=== PATIENT | female | born 1970 | race Caucasian/White ===

== ENCOUNTER 2020-05-05 10:52 | Emergency (ER) | payer BC ==
[2020-05-05] MEDS ORDERED: SODIUM CHLORIDE 0.9% 1,000 ML IV STA (11:19)
[2020-05-05] MEDS ORDERED: METOCLOPRAMIDE 5 MG/ML 2 ML VIAL IVP STA (11:19)
[2020-05-05] MEDS ORDERED: BENZONATATE 100 MG CAP PO STA (11:19)
[2020-05-05] MEDS ORDERED: diphenhydrAMINE 50 MG/ML 1 ML VIAL IVP STA (11:19)
[2020-05-05] MEDS ORDERED: KETOROLAC 15 MG/ML 1 ML VIAL IVP STA (11:27)
--- NOTE | 2020-05-05 11:28 | ED ---
URI HPI - General Chief Complaint: Upper Respiratory Infection Stated Complaint: COVID+, NAUSEA Time Seen by Provider: 05/05/20 11:06 Source: patient, RN notes reviewed Mode of arrival: ambulatory Limitations: no limitations - History of Present Illness Initial Comments: This a 49-year-old female presents emergency Department chief complaint is severe nausea, vomiting, cough. Patient states she started symptoms over one week ago. Patient tested positive for Covid. Patient states that she did video [employer] health. Patient states that she was given Zofran states that has not helped. Patient states she just feels very fatigued, weak. Denies any chest pain, shortness breath. She's had no sick contacts. Patient offers no complaints. Denies any current medications no ALLERGIES - Related Data Home Medications Medication Instructions Recorded Confirmed Acetaminophen Tab [Tylenol] 1,000 mg PO Q4H PRN 05/05/20 05/05/20 Ondansetron [Zofran] 8 mg PO Q12HR PRN 05/05/20 05/05/20 guaiFENesin [Mucinex] 1,200 mg PO Q12H PRN 05/05/20 05/05/20 Previous Rx's Medication Instructions Recorded Metoclopramide [Reglan] 10 mg PO TID PRN #15 tab 05/05/20 Allergies Allergy/AdvReac Type Severity Reaction Status Date / Time No Known Allergies Allergy Verified 05/05/20 13:06 Review of Systems ROS Statement: Those systems with pertinent positive or pertinent negative responses have been documented in the HPI. ROS Other: All systems not noted in ROS Statement are negative. Past Medical History Past Medical History: No Reported History History of Any Multi-Drug Resistant Organisms: None Reported Past Surgical History: No Surgical Hx Reported Past Psychological History: No Psychological Hx Reported Smoking Status: Never smoker Past Alcohol Use History: None Reported Past Drug Use History: None Reported General Exam Limitations: no limitations General appearance: alert, in no apparent distress Head exam: Present: atraumatic, normocephalic, normal inspection Eye exam: Present: normal appearance, PERRL, EOMI. Absent: scleral icterus, conjunctival injection, periorbital swelling ENT exam: Present: normal exam, normal oropharynx, mucous membranes moist Neck exam: Present: normal inspection, full ROM. Absent: tenderness, meningismus, lymphadenopathy Respiratory exam: Present: normal lung sounds bilaterally. Absent: respiratory distress, wheezes, rales, rhonchi, stridor Cardiovascular Exam: Present: regular rate, normal rhythm, normal heart sounds. Absent: systolic murmur, diastolic murmur, rubs, gallop, clicks GI/Abdominal exam: Present: soft, normal bowel sounds. Absent: distended, tenderness, guarding, rebound, rigid Back exam: Absent: CVA tenderness (R), CVA tenderness (L) Neurological exam: Present: alert Skin exam: Present: warm, dry, intact, normal color. Absent: rash Course Vital Signs 05/05/20 05/05/20 05/05/20 11:00 11:58 12:48 Temperature 99.9 F H 101.7 F H Pulse Rate 100 95 81 Respiratory 18 20 18 Rate Blood Pressure 136/86 153/94 128/80 O2 Sat by Pulse 96 95 95 Oximetry 05/05/20 13:16 Temperature 101.4 F H Pulse Rate 86 Respiratory 19 Rate Blood Pressure 131/78 O2 Sat by Pulse 96 Oximetry Medical Decision Making - Medical Decision Making Labs were reviewedabnormality. Patient's nausea is improved after Reglan. Patient x-rays unremarkable. Patient did receive monoclonal antibodies Patient we discharged in stable condition return parameters were discussed. - Lab Data Result diagrams: 05/05/20 11:43 05/05/20 11:43 Lab Results 05/05/20 05/05/20 05/05/20 Range/Units 11:43 11:43 13:21 WBC 3.5 L (3.8-10.6) k/uL RBC 4.88 (3.80-5.40) m/uL Hgb 11.1 L (11.4-16.0) gm/dL Hct 34.8 (34.0-46.0) % MCV 71.3 L (80.0-100.0) fL MCH 22.8 L (25.0-35.0) pg MCHC 32.0 (31.0-37.0) g/dL RDW 16.2 H (11.5-15.5) % Plt Count 223 (150-450) k/uL MPV 7.2 Neutrophils % 68 % Lymphocytes % 20 % Monocytes % 10 % Eosinophils % 0 % Basophils % 1 % Neutrophils # 2.4 (1.3-7.7) k/uL Lymphocytes # 0.7 L (1.0-4.8) k/uL Monocytes # 0.4 (0-1.0) k/uL Eosinophils # 0.0 (0-0.7) k/uL Basophils # 0.0 (0-0.2) k/uL Hypochromasia Slight Anisocytosis Slight Microcytosis Moderate Sodium 134 L (137-145) mmol/L Potassium 3.8 (3.5-5.1) mmol/L Chloride 101 (98-107) mmol/L Carbon Dioxide 23 (22-30) mmol/L Anion Gap 10 mmol/L BUN 9 (7-17) mg/dL Creatinine 0.65 (0.52-1.04) mg/dL Est GFR (CKD-EPI)AfAm >90 (>60 ml/min/1.73 sqM) Est GFR (CKD-EPI)NonAf >90 (>60 ml/min/1.73 sqM) Glucose 113 H (74-99) mg/dL Calcium 8.2 L (8.4-10.2) mg/dL Total Bilirubin 0.3 (0.2-1.3) mg/dL AST 47 H (14-36) U/L ALT 33 (4-34) U/L Alkaline Phosphatase 63 (38-126) U/L Total Protein 6.5 (6.3-8.2) g/dL Albumin 3.6 (3.5-5.0) g/dL Amylase 40 (30-110) U/L Lipase 84 (23-300) U/L Urine Color Yellow Urine Appearance Clear (Clear) Urine pH 6.0 (5.0-8.0) Ur Specific [place] 1.019 (1.001-1.035) Urine Protein 1+ H (Negative) Urine Glucose (UA) Negative (Negative) Urine Ketones Negative (Negative) Urine Blood Moderate H (Negative) Urine Nitrite Negative (Negative) Urine Bilirubin Negative (Negative) Urine Urobilinogen <2.0 (<2.0) mg/dL Ur Leukocyte Esterase Negative (Negative) Urine RBC 7 H (0-5) /hpf Urine WBC 3 (0-5) /hpf Urine Mucus Few H (None) /hpf Disposition Clinical Impression: COVID-19, Nausea Disposition: HOME SELF-CARE Condition: Stable Instructions (If sedation given, give patient instructions): Coronavirus Disease 2019 (COVID-19) Additional Instructions: Please return to the Emergency Department if symptoms worsen or any other concerns. Prescriptions: Metoclopramide [Reglan] 10 mg PO TID PRN #15 tab PRN Reason: GERD Is patient prescribed a controlled substance at d/c from ED?: No Referrals: Nonstaff,Physician [REFERRING] - 1-2 days Time of Disposition: 13:50
--- NOTE | 2020-05-05 11:58 | XR ---
EXAMINATION TYPE: XR chest 1V portable DATE OF EXAM: 05/05/2020 COMPARISON: NONE HISTORY: Cough TECHNIQUE: Single frontal view of the chest is obtained. FINDINGS: There is no focal air space opacity, pleural effusion, or pneumothorax seen. The cardiac silhouette size is within normal limits. The osseous structures are intact. IMPRESSION: 1. No acute process.
[2020-05-05 12:00] LABS: ALT 33 U/L (4-34); AST 47 U/L (14-36); African American GFR (CKD) >90 (>60 ml/min/1.73 sqM); Albumin 3.6 g/dL (3.5-5.0); Alkaline Phosphatase 63 U/L (38-126); Amylase 40 U/L (30-110); Anion Gap 10 mmol/L; Blood Urea Nitrogen 9 mg/dL (7-17); Calcium 8.2 mg/dL (8.4-10.2); Carbon Dioxide 23 mmol/L (22-30); Chloride 101 mmol/L (98-107); Glucose 113 mg/dL (74-99); Lipase 84 U/L (23-300); Non-African American GFR(CKD) >90 (>60 ml/min/1.73 sqM); Potassium 3.8 mmol/L (3.5-5.1); Sodium 134 mmol/L (137-145); Total Bilirubin 0.3 mg/dL (0.2-1.3); Total Protein 6.5 g/dL (6.3-8.2)
[2020-05-05] MEDS ORDERED: ACETAMINOPHEN TAB 500 MG TAB PO STA (12:05)
[2020-05-05 12:21] LABS: Anisocytosis Slight; Basophils % (A) 1 %; Eosinophils % (A) 0 %; HCT 34.8 % (34.0-46.0); HGB 11.1 gm/dL (11.4-16.0); Hypochromasia Slight; Lymphocytes # (A) 0.7 k/uL (1.0-4.8); Lymphocytes % (A) 20 %; MCH 22.8 pg (25.0-35.0); MCV 71.3 fL (80.0-100.0); Mean Platelet Volume 7.2; Microcytosis Moderate; Monocytes # (A) 0.4 k/uL (0-1.0); Monocytes % (A) 10 %; Neutrophils # (A) 2.4 k/uL (1.3-7.7); Neutrophils % (A) 68 %; Platelet Count 223 k/uL (150-450); RBC 4.88 m/uL (3.80-5.40); RDW 16.2 % (11.5-15.5); WBC 3.5 k/uL (3.8-10.6)
[2020-05-05] MEDS ORDERED: BAMLANIVIMAB 700 MG in SODIUM CHLORIDE 0.9% 50 ML IVPB ONE (12:40)
[2020-05-05 13:44] LABS: Appearance,Urine Clear (Clear); Bilirubin,Urine Negative (Negative); Blood,Urine Moderate (Negative); Color,Urine Yellow; Glucose,Urine (UA) Negative (Negative); Ketones,Urine Negative (Negative); Leukocyte Esterase,Urine Negative (Negative); Mucus,Urine Few /hpf; Nitrite,Urine Negative (Negative); Protein,Urine 1+ (Negative); RBC,Urine 7 /hpf (0-5); Specific Gravity,Urine 1.019 (1.001-1.035); Urobilinogen,Urine <2.0 mg/dL (<2.0); WBC,Urine 3 /hpf (0-5)
[2020-05-05 14:21] VITALS: BP 134/86; PULSE 79; RESP 18; TEMP 100.8
== END 2020-05-05 14:24 | disposition home or self-care (01) ==
LOC: EC 10:52
DX: U07.1 COVID-19 (principal)
CPT/HCPCS: 36415; 80053; 82150; 83690; 85025; 81001; 71045; 99284; 96365; 96375 ×3; 96361; J1200; J2765; J1885; Q0239

== ENCOUNTER 2020-05-10 18:25 | Emergency (ER) | payer BC ==
[2020-05-10] MEDS ORDERED: SODIUM CHLORIDE 0.9% 500 ML 500 ML IV STA (20:33)
[2020-05-10] MEDS ORDERED: SODIUM CHLORIDE 0.9% 1,000 ML IV STA (20:33)
[2020-05-10] MEDS ORDERED: ALBUTEROL HFA INHALER INHALATION STA (20:34)
--- NOTE | 2020-05-10 20:37 | ED ---
SOB HPI - General Chief Complaint: Shortness of Breath Stated Complaint: Covid + SOB Time Seen by Provider: 05/10/20 20:20 Source: patient, RN notes reviewed Mode of arrival: ambulatory Limitations: no limitations - History of Present Illness Initial Comments: This is a 41-year-old female who was diagnosed with Covid 19 and given an antibody infusion 5 days ago who states she started feeling better about 3 days ago but then started relapsing she complains of some right ear pain shortness of breath nausea and diarrhea lethargy minimally productive cough he's had no fevers or last 2 days she's had some sweats. No chest pain. Placed modifying factors at this time. MD Complaint: shortness of breath, cough - Related Data Home Medications Medication Instructions Recorded Confirmed Acetaminophen Tab [Tylenol] 1,000 mg PO Q4H PRN 05/05/20 05/10/20 Metoclopramide [Reglan] 10 mg PO TID PRN 05/10/20 05/10/20 Previous Rx's Medication Instructions Recorded Azithromycin [Zithromax Z-pack (6 250 mg PO DIRECTED 5 Days #6 tab 05/10/20 tabs)] Metoclopramide [Reglan] 10 mg PO TID #12 tab 05/10/20 Allergies Allergy/AdvReac Type Severity Reaction Status Date / Time No Known Allergies Allergy Verified 05/10/20 21:05 Review of Systems ROS Statement: Those systems with pertinent positive or pertinent negative responses have been documented in the HPI. ROS Other: All systems not noted in ROS Statement are negative. Past Medical History Past Medical History: No Reported History History of Any Multi-Drug Resistant Organisms: None Reported Past Surgical History: No Surgical Hx Reported Past Psychological History: No Psychological Hx Reported Smoking Status: Never smoker Past Alcohol Use History: None Reported Past Drug Use History: None Reported General Exam - General Exam Comments Initial Comments: This is a well-developed well-nourished awake alert oriented 3 female Limitations: no limitations General appearance: alert, in no apparent distress Head exam: Present: atraumatic, normocephalic, normal inspection Eye exam: Present: normal appearance, PERRL, EOMI. Absent: scleral icterus, conjunctival injection, periorbital swelling ENT exam: Present: mucous membranes dry Neck exam: Present: normal inspection. Absent: tenderness, meningismus, lymphadenopathy Respiratory exam: Present: rales, rhonchi (Bi-basilar rales rhonchi more swelling right than the left), decreased breath sounds. Absent: respiratory distress, wheezes, stridor Cardiovascular Exam: Present: regular rate, normal rhythm, normal heart sounds. Absent: systolic murmur, diastolic murmur, rubs, gallop, clicks GI/Abdominal exam: Present: soft, normal bowel sounds. Absent: distended, tenderness, guarding, rebound, rigid Extremities exam: Present: normal inspection, full ROM, normal capillary refill. Absent: tenderness, pedal edema, joint swelling, calf tenderness Back exam: Present: normal inspection Neurological exam: Present: alert, oriented X3, CN II-XII intact Psychiatric exam: Present: normal affect, normal mood Skin exam: Present: warm, dry, intact, normal color. Absent: rash Course Vital Signs 05/10/20 18:49 Temperature 98.4 F Pulse Rate 84 Respiratory 16 Rate Blood Pressure 144/89 O2 Sat by Pulse 97 Oximetry Medical Decision Making - Medical Decision Making I did a long discussion with patient regarding findings she would like to go home at this juncture it is reasonable to place her on a macrolide. She is in agreement with this will also get a prescription for Zofran if she still has some intermittent nausea. - Lab Data Result diagrams: 05/10/20 21:15 05/10/20 21:15 Lab Results 05/10/20 05/10/20 05/10/20 Range/Units 21:15 21:15 21:15 WBC 8.6 (3.8-10.6) k/uL RBC 4.37 (3.80-5.40) m/uL Hgb 10.6 L (11.4-16.0) gm/dL Hct 30.7 L (34.0-46.0) % MCV 70.3 L (80.0-100.0) fL MCH 24.2 L (25.0-35.0) pg MCHC 34.4 (31.0-37.0) g/dL RDW 15.9 H (11.5-15.5) % Plt Count 492 H D (150-450) k/uL MPV 6.9 Neutrophils % 72 % Lymphocytes % 15 % Monocytes % 11 % Eosinophils % 1 % Basophils % 0 % Neutrophils # 6.2 (1.3-7.7) k/uL Lymphocytes # 1.3 (1.0-4.8) k/uL Monocytes # 0.9 (0-1.0) k/uL Eosinophils # 0.0 (0-0.7) k/uL Basophils # 0.0 (0-0.2) k/uL Microcytosis Moderate PT 10.2 (9.0-12.0) sec INR 0.9 (<1.2) APTT 21.7 L (22.0-30.0) sec D-Dimer 0.75 H (<0.60) mg/L FEU Sodium 135 L (137-145) mmol/L Potassium 3.6 (3.5-5.1) mmol/L Chloride 101 (98-107) mmol/L Carbon Dioxide 24 (22-30) mmol/L Anion Gap 10 mmol/L BUN 9 (7-17) mg/dL Creatinine 0.52 (0.52-1.04) mg/dL Est GFR (CKD-EPI)AfAm >90 (>60 ml/min/1.73 sqM) Est GFR (CKD-EPI)NonAf >90 (>60 ml/min/1.73 sqM) Glucose 111 H (74-99) mg/dL Plasma Lactic Acid [place] (0.7-2.0) mmol/L Calcium 8.7 (8.4-10.2) mg/dL Magnesium 2.0 (1.6-2.3) mg/dL Total Bilirubin 0.6 (0.2-1.3) mg/dL AST 28 (14-36) U/L ALT 23 (4-34) U/L Alkaline Phosphatase 73 (38-126) U/L Creatine Kinase 32 (30-135) U/L Troponin I (0.000-0.034) ng/mL NT-Pro-B Natriuret Pep pg/mL Total Protein 6.4 (6.3-8.2) g/dL Albumin 3.4 L (3.5-5.0) g/dL 05/10/20 05/10/20 05/10/20 Range/Units 21:15 21:15 21:15 WBC (3.8-10.6) k/uL RBC (3.80-5.40) m/uL Hgb (11.4-16.0) gm/dL Hct (34.0-46.0) % MCV (80.0-100.0) fL MCH (25.0-35.0) pg MCHC (31.0-37.0) g/dL RDW (11.5-15.5) % Plt Count (150-450) k/uL MPV Neutrophils % % Lymphocytes % % Monocytes % % Eosinophils % % Basophils % % Neutrophils # (1.3-7.7) k/uL Lymphocytes # (1.0-4.8) k/uL Monocytes # (0-1.0) k/uL Eosinophils # (0-0.7) k/uL Basophils # (0-0.2) k/uL Microcytosis PT (9.0-12.0) sec INR (<1.2) APTT (22.0-30.0) sec D-Dimer (<0.60) mg/L FEU Sodium (137-145) mmol/L Potassium (3.5-5.1) mmol/L Chloride (98-107) mmol/L Carbon Dioxide (22-30) mmol/L Anion Gap mmol/L BUN (7-17) mg/dL Creatinine (0.52-1.04) mg/dL Est GFR (CKD-EPI)AfAm (>60 ml/min/1.73 sqM) Est GFR (CKD-EPI)NonAf (>60 ml/min/1.73 sqM) Glucose (74-99) mg/dL Plasma Lactic Acid [place] 1.0 (0.7-2.0) mmol/L Calcium (8.4-10.2) mg/dL Magnesium (1.6-2.3) mg/dL Total Bilirubin (0.2-1.3) mg/dL AST (14-36) U/L ALT (4-34) U/L Alkaline Phosphatase (38-126) U/L Creatine Kinase (30-135) U/L Troponin I <0.012 (0.000-0.034) ng/mL NT-Pro-B Natriuret Pep 241 pg/mL Total Protein (6.3-8.2) g/dL Albumin (3.5-5.0) g/dL - EKG Data -: EKG Interpreted by Pr EKG shows normal: sinus rhythm EKG Comments: Sinus rhythm a 76 CO interval 182 QRS 84 QT since QTC 460/[address]-T wave configuration prolonged QT - Radiology Data Radiology results: report reviewed (I did review the imaging and report evidence of infiltrates consistent with Covid 19 over no evidence of any pulmonary emboli.), image reviewed Disposition Clinical Impression: Viral pneumonia, COVID-19, Bronchospasm, acute Disposition: HOME SELF-CARE Condition: Good Instructions (If sedation given, give patient instructions): Bronchospasm (ED), Viral Pneumonia (ED), Acute Nausea and Vomiting (ED) Additional Instructions: Use the albuterol inhaler 2 puffs 4 times a day when necessary Prescriptions: Metoclopramide [Reglan] 10 mg PO TID #12 tab Azithromycin [Zithromax Z-pack (6 tabs)] 250 mg PO DIRECTED 5 Days #6 tab Is patient prescribed a controlled substance at d/c from ED?: No Referrals: None,Stated [Primary Care Provider] - 1-2 days
--- NOTE | 2020-05-10 21:18 | XR ---
EXAMINATION TYPE: XR chest 1V portable DATE OF EXAM: 05/10/2020 COMPARISON: 05/05/2020 HISTORY: Short of breath TECHNIQUE: FINDINGS: There is some patchy peripheral bilateral airspace infiltrates. There is no heart failure. Heart size is normal. There is no pleural effusion. There are chest leads. IMPRESSION: Bilateral patchy pneumonia is new compared to old exam.
[2020-05-10 21:24] LABS: Basophils % (A) 0 %; Eosinophils % (A) 1 %; HCT 30.7 % (34.0-46.0); HGB 10.6 gm/dL (11.4-16.0); Lymphocytes # (A) 1.3 k/uL (1.0-4.8); Lymphocytes % (A) 15 %; MCH 24.2 pg (25.0-35.0); MCHC 34.4 g/dL (31.0-37.0); MCV 70.3 fL (80.0-100.0); Mean Platelet Volume 6.9; Microcytosis Moderate; Monocytes # (A) 0.9 k/uL (0-1.0); Monocytes % (A) 11 %; Neutrophils # (A) 6.2 k/uL (1.3-7.7); Neutrophils % (A) 72 %; RBC 4.37 m/uL (3.80-5.40); RDW 15.9 % (11.5-15.5); WBC 8.6 k/uL (3.8-10.6)
[2020-05-10 21:26] LABS: Platelet Count 492 k/uL (150-450)
[2020-05-10 21:33] LABS: ALT 23 U/L (4-34); AST 28 U/L (14-36); African American GFR (CKD) >90 (>60 ml/min/1.73 sqM); Albumin 3.4 g/dL (3.5-5.0); Alkaline Phosphatase 73 U/L (38-126); Anion Gap 10 mmol/L; Blood Urea Nitrogen 9 mg/dL (7-17); Calcium 8.7 mg/dL (8.4-10.2); Carbon Dioxide 24 mmol/L (22-30); Chloride 101 mmol/L (98-107); Creatine Kinase 32 U/L (30-135); Glucose 111 mg/dL (74-99); Non-African American GFR(CKD) >90 (>60 ml/min/1.73 sqM); Potassium 3.6 mmol/L (3.5-5.1); Sodium 135 mmol/L (137-145); Total Bilirubin 0.6 mg/dL (0.2-1.3); Total Protein 6.4 g/dL (6.3-8.2)
[2020-05-10 21:54] LABS: INR 0.9 (<1.2); Partial Thromboplastin Time 21.7 sec (22.0-30.0); Prothrombin Time 10.2 sec (9.0-12.0)
[2020-05-10 22:01] LABS: D-Dimer 0.75 mg/L FEU (<0.60)
--- NOTE | 2020-05-10 22:39 | CT ---
EXAMINATION TYPE: CT angio chest DATE OF EXAM: 05/10/2020 COMPARISON: None HISTORY: Shortness of breath and cough x's [address] DLP: 387.4 mGycm Automated exposure control for dose reduction was used. CONTRAST: Performed with IV Contrast, patient injected with 100 mL of Isovue 370. There are 3-D post processed images. There are extensive peripheral pulmonary interstitial and airspace infiltrates. There is no pleural e ffusion. Heart is probably enlarged. There is no pericardial effusion. There are few mediastinal lymp h nodes that measure less than 1 cm. There are bilateral bronchial lymph nodes up to 1 cm. There is normal contrast opacification of the pulmonary arteries. There are no filling defects. Bony thorax is intact. Upper abdominal soft tissues are intact. There is 3 cm cortical cyst upper pole rig ht kidney. IMPRESSION: No evidence of pulmonary embolism. Extensive bilateral pneumonia.
[2020-05-10] MEDS ORDERED: AZITHROMYCIN 500 MG TAB PO STA (22:55)
[2020-05-10 23:07] VITALS: BP 150/93; PULSE 79; RESP 18; TEMP 98
== END 2020-05-10 23:50 | disposition home or self-care (01) ==
LOC: EC 18:25
DX: U07.1 COVID-19 (principal); J12.82 Pneumonia due to coronavirus disease 2019; J98.01 Acute bronchospasm; H92.01 Otalgia, right ear; Z79.899 Other long term (current) drug therapy
CPT/HCPCS: 36415; 94640; 85379; 83880; 80053; 82550; 83605; 83735; 84484; 85025; 85610; 85730; 87040; 71045; 71275; 99285; 96360; Q9967